=== PATIENT | female | born 1985 | race Caucasian/White ===

== ENCOUNTER 2016-11-07 18:52 | Emergency (ER) | payer BC ==
[~2016-11-07] VITALS: Ht 165.1 cm; Wt 56.8 kg
[~2016-11-07 18:52] MED LIST: BUPR-79 PO; DOXY50CA PO
[2016-11-07 18:56] VITALS: TEMP 37.1; Ht 165.1 cm; Wt 56.8 kg
[2016-11-07] MEDS ORDERED: SODIUM CHLORIDE 0.9% 1000ML 2,000 ML IV STA (19:55)
[2016-11-07] MEDS ORDERED: ONDANSETRON INJ 2 MG/ML 2 ML VIAL IV STA (19:55)
[2016-11-07] MEDS ORDERED: KETOROLAC TROMETHAMINE 30 MG/ML VIAL IV STA (19:55)
[2016-11-07] MEDS ORDERED: EPP3/2 IM (20:21)
[2016-11-07] MEDS ORDERED: DOXY50CA5 PO (20:32)
[2016-11-07] MEDS ORDERED: WLLSR150 PO (20:32)
[2016-11-07 20:39] LABS: BASO % 0.1 %; BASO ABS # 0.01 K/uL (0-0.2); COMPLETE YES; EOS % 0.8 %; IG% 0.3 %; LYMPH % 3.6 %; LYMPH ABS # 0.39 K/uL (1.2-3.4); MEAN CELL VOLUME 94.4 fL (80-100); MEAN CORPUSCULAR HEMOGLOBIN 33.7 pg (25-34); MEAN CORPUSCULAR HGB CONC 35.7 g/dl (32-36); MEAN PLATELET VOLUME 9.3 fL (7.4-10.4); MONO % 2.5 %; NEUT % 92.7 %; PLATELET COUNT 234 K/uL (130-400); RED BLOOD COUNT 4.45 M/uL (4.2-5.4); WHITE BLOOD COUNT 10.73 K/uL (4.8-10.8)
[2016-11-07 20:57] LABS: BUN/CREATININE RATIO 17.7 (10-20); CALCIUM 9.1 mg/dl (8.5-10.1); CREATININE 0.81 mg/dl (0.60-1.20); POTASSIUM 3.8 mmol/L (3.5-5.1)
[2016-11-07 21:14] LABS: PREG INTERNAL NEGATIVE QC NEG CLEAR BACKGROUND; PREG INTERNAL POSITIVE QC POS CONTROL LINE
[2016-11-07] MEDS ORDERED: ONDA4TAB65 PO (21:42)
[2016-11-07] MEDS ORDERED: ONDANSETRON HOME PACK 4MG OD TAB PO ONE (21:45)
[2016-11-07 22:09] VITALS: BP 120/83; PULSE 78; O2SAT 96
--- NOTE | 2016-11-07 22:31 | EMERGENCY ROOM VISIT NOTE ---
History Report prepared by Lorenaibtereso: Camilla Duke Under the Supervision of: Dr. Gavin Garcia D.O. First contact with patient: 19:48 Chief Complaint: FLU LIKE SX Stated Complaint: FLU History of Present Illness The patient is a 31 year old female who presents to the Emergency Room with complaints of persistent vomiting that began yesterday. The patient states that she has since started vomiting foam and dry heaving because she has nothing left to vomit. She estimates approximately 15-20 episodes of vomiting. She also complains of abdominal cramping, a runny nose, headache and subjective fever. Her last bowel movement was 2 days ago. 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 Her last menstrual period was 4 weeks ago. She is sexually active but denies chance of . Pt denies change in vision, sore throat, cough, chest pain, shortness of breath, diarrhea, pain with urination, melena, vaginal discharge/bleeding, or other complaints. She denies drug and alcohol use. Source of History: patient Onset: yesterday Position: other (GI) Symptom Intensity: 15-20 episodes Quality: other (vomiting) Timing: other (persistent) Associated Symptoms: + abdominal pain, + fevers (subjective), + headache, + nausea, No SOB, No chest pain, No cough, No diarrhea, No melena, No sorethroat, No urinary symptoms Note: Other symptoms: runny nose Review of Systems See HPI for pertinent positives & negatives. A total of 10 systems reviewed and were otherwise negative. Past Medical & Surgical Medical Problems: (1) Hypokalemia Family History Cancer Diabetes mellitus Social History Smoking Status: Current Every Day Smoker Alcohol Use: none Drug Use: none Marital Status: single Housing Status: lives alone Occupation Status: employed Current/Historical Medications Scheduled Bupropion HCl (Bupropion HCl Sr), 150 MG PO DAILY Doxycycline (Monohydrate) (Doxycycline Monohydrate), 50 MG PO BID Scheduled PRN Epinephrine (Epipen), 0.3 MG IM UD PRN for ALLERGIC REACTION Ondansetron Hcl (Zofran), 1 TAB PO Q6H PRN for nausea Allergies Coded Allergies: NUTS (Verified Allergy, Severe, ANAPHYLAXIS, 08/09/16) BEE STING (Verified Allergy, Unknown, ANAPHYLAXIS, 08/09/16) Physical Exam Vital Signs Date Time Temp Pulse Resp B/P Pulse Ox O2 Delivery O2 Flow Rate FiO2 11/07/16 22:09 78 16 120/83 96 11/07/16 20:28 97 16 124/73 98 Room Air 11/07/16 18:56 37.1 95 18 119/73 98 Room Air Physical Exam GENERAL: Sitting up in bed, disheveled, no acute distress, nontoxic. EYE EXAM: normal conjunctiva OROPHARYNX: no exudate, no erythema, lips, buccal mucosa, and tongue normal and mucous membranes are moist NECK: supple, no nuchal rigidity, no adenopathy, non-tender LUNGS: Clear to auscultation. Normal chest wall mechanics HEART: no murmurs, S1 normal and S2 normal ABDOMEN: abdomen soft, minimal discomfort in the epigastric region, normo- active bowel sounds, no masses, no rebound or guarding. BACK: Back is symmetrical on inspection and there is no deformity, no midline tenderness, no CVA tenderness. SKIN: no rashes and no bruising UPPER EXTREMITIES: upper extremities are grossly normal. LOWER EXTREMITIES: No pitting edema. NEURO EXAM: Normal sensorium Medical Decision & Procedures Laboratory Results 11/07/16 20:20 Red Blood Count 4.45, Mean Corpuscular Volume 94.4, Mean Corpuscular Hemoglobin 33.7, Mean Corpuscular Hemoglobin Concent 35.7, Mean Platelet Volume 9.3, Neutrophils (%) (Auto) 92.7, Lymphocytes (%) (Auto) 3.6, Monocytes (%) (Auto) 2.5, Eosinophils (%) (Auto) 0.8, Basophils (%) (Auto) 0.1, Neutrophils # (Auto) 9.94, Lymphocytes # (Auto) 0.39, Monocytes # (Auto) 0.27, Eosinophils # (Auto) 0.09, Basophils # (Auto) 0.01 11/07/16 20:20 Test 11/07/16 20:20 White Blood Count 10.73 K/uL (4.8-10.8) Red Blood Count 4.45 M/uL (4.2-5.4) Hemoglobin 15.0 g/dL (12.0-16.0) Hematocrit 42.0 % (37-47) Mean Corpuscular Volume 94.4 fL (80-100) Mean Corpuscular Hemoglobin 33.7 pg (25-34) Mean Corpuscular Hemoglobin Concent 35.7 g/dl (32-36) Platelet Count 234 K/uL (130-400) Mean Platelet Volume 9.3 fL (7.4-10.4) Neutrophils (%) (Auto) 92.7 % Lymphocytes (%) (Auto) 3.6 % Monocytes (%) (Auto) 2.5 % Eosinophils (%) (Auto) 0.8 % Basophils (%) (Auto) 0.1 % Neutrophils # (Auto) 9.94 K/uL (1.4-6.5) Lymphocytes # (Auto) 0.39 K/uL (1.2-3.4) Monocytes # (Auto) 0.27 K/uL (0.11-0.59) Eosinophils # (Auto) 0.09 K/uL (0-0.5) Basophils # (Auto) 0.01 K/uL (0-0.2) RDW Standard Deviation 42.6 fL (36.4-46.3) RDW Coefficient of Variation 12.3 % (11.5-14.5) Immature Granulocyte % (Auto) 0.3 % Immature Granulocyte # (Auto) 0.03 K/uL (0.00-0.02) Anion Gap 13.0 mmol/L (3-11) Est Creatinine Clear Calc Drug Dose 89.4 ml/min Estimated GFR () 111.4 Estimated GFR (Non- 96.1 BUN/Creatinine Ratio 17.7 (10-20) Calcium Level 9.1 mg/dl (8.5-10.1) Total Bilirubin 1.2 mg/dl (0.2-1) Direct Bilirubin 0.2 mg/dl (0-0.2) Aspartate Amino Transf (AST/SGOT) 19 U/L (15-37) Alanine Aminotransferase (ALT/SGPT) 20 U/L (12-78) Alkaline Phosphatase 39 U/L (45-117) Total Protein 7.8 gm/dl (6.4-8.2) Albumin 4.2 gm/dl (3.4-5.0) Lipase 135 U/L (73-393) Human Chorionic Gonadotropin, Qual NEG (NEG) Laboratory results per my review. Medications Administered Medications (Trade) Dose Ordered Sig/Neha Route Start Time Stop Time Status Last Admin Dose Admin Sodium Chloride (Nss 1000ml) 2,000 ml @ 999 mls/hr Q2H1M STAT IV 11/07/16 19:55 11/07/16 21:55 DC 11/07/16 20:35 999 MLS/HR Ondansetron HCl (Zofran Inj) 4 mg NOW STAT IV 11/07/16 19:55 11/07/16 19:56 DC 11/07/16 20:35 4 MG Ketorolac Tromethamine (Toradol Inj) 30 mg NOW STAT IV 11/07/16 19:55 11/07/16 19:56 DC 11/07/16 20:35 30 MG Ondansetron HCl (ZOFRAN ODT 4MG Home Pack) 1 homepack UD ONCE PO 11/07/16 21:45 11/07/16 21:46 DC 11/07/16 21:45 1 HOMEPACK ED Course ED COURSE: Vital signs were reviewed and showed normal vitals. The patients medical record was reviewed The above diagnostic studies were performed and reviewed. ED treatments and interventions as stated above. 1948: The patient was evaluated in room B6. A complete history and physical examination was performed. 1954: Ordered Toradol Inj 30 mg IV, Zofran Inj 4 mg IV, NSS 2000 ml @ 999 mls/ hr IV. 2049: Per nursing staff, the patient refused the x-ray. 2105: I reassessed the patient. She was feeling much better. 2134: Upon reevaluation, the patient is feeling completely better and has no abdominal pain.I discussed my findings with the patient and she understands and agrees with the treatment plan. Based on the patients age, coexisting illnesses, exam and lab findings the decision to treat as an outpatient was made. The patient remained stable while under my care. The patient appeared well at the time of discharge. 2144: Ordered Ondansetron HCl 1 homepack PO. Medical Decision Differential diagnoses includes but is not limited to gastritis, peptic ulcer disease, GERD, gallbladder disease, pancreatitis, small bowel obstruction, acute coronary syndrome, pericarditis, ischemic bowel, irritable bowel disease, irritable bowel syndrome, appendicitis, diverticulitis, malignancy, hernia, urinary tract infection, torsion, /ectopic , perforation, trauma, infectious. Patient is a 31-year-old female who presents the ER for persistent vomiting which has been present for the past 2 days. She notes that she has been unable to keep anything down. She gets a cramping epigastric pain and then vomits. Last bowel movement was 2 days ago. She has no other significant past medical history. Still has her gallbladder and appendix. 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 CBC along with BMP, LFTs and lipase unremarkable. was negative. Total bili was slightly elevated at 1.2 which I favor secondary to vomiting. She is unable to give a urine. She is completely benign exam. She is given 2 L normal saline along with Zofran and Toradol. She complete resolution of her symptoms. No vomiting while in the ER. She notes that her cramping abdominal pain went away. She declined imaging. I do not believe that this is urinary and consequently she was discharged following feeling 100% better per the patient. She is discharged with Zofran as I do feel this is likely vomiting secondary to a GI bug. Discussed with Pt concerning signs and symptoms to watch out for. Pt was instructed to follow up with their PCP and discussed with the patient their option to return to the ED at anytime for persistent or worsening symptoms. The appropriate anticipatory guidance and out-patient management, including indications for return to the emergency department, were explained at length to the patient and understood. Impression Primary Impression: Vomiting Additional Impression: Epigastric abdominal pain Scribe Attestation The scribe's documentation has been prepared under my direction and personally reviewed by me in its entirety. I confirm that the note above accurately reflects all work, treatment, procedures, and medical decision making performed by me. Departure Information Dispostion Home / Self-Care Prescriptions Ondansetron Hcl (ZOFRAN) 4 Mg Tab 1 TAB PO Q6H Y for nausea, #20 TAB 1 Refill Prov: Gavin Garcia, DO 11/07/16 Referrals No Doctor, Assigned (PCP) Patient Instructions Abdominal Pain - [facility], [facility], Vomiting - [facility] Additional Instructions Please follow up with your primary care doctor with in the next 24 hours. Any worsening of your symptoms, please return to the ED immediately. This includes fevers greater than 100.4, pain right upper quadrant, unable to eat or drink, blood in your vomit, or any other concerning signs or symptoms from your standpoint. Please take Zofran as needed for vomiting. Problem Qualifiers Primary Impression: Vomiting Vomiting type: unspecified Vomiting Intractability: non-intractable Nausea presence: with nausea Qualified Codes: R11.2 - Nausea with vomiting, unspecified
== END 2016-11-07 22:09 | disposition home or self-care (01) ==
LOC: C.EDB 18:52
DX: R11.2 Nausea with vomiting, unspecified (principal); R10.13 Epigastric pain; Z83.3 Family history of diabetes mellitus; F17.210 Nicotine dependence, cigarettes, uncomplicated; Z79.899 Other long term (current) drug therapy